=== PATIENT | female | born 1945 | race Caucasian/White ===

== ENCOUNTER → 2017-03-15 | Day surgery (SDC) | payer MEDICARE ==
[~2017-03-15] VITALS: Ht 157.5 cm; Wt 54.8 kg
[~2017-03-15] MED LIST: AMBI10TA PO; CHLORHEXIDINE GLUCONATE 2 % 1 PACK (2 CLOTHS) TOPICAL PRN; CYCL-36 PO; ESMOLOL HCL 100 MG/10 ML VIAL IV ONE; FEXO180 PO; GABA300 PO; GLYCOPYRROLATE 1 MG/5 ML SYRINGE IV PUSH ONE; IMIT50TA PO; INSULIN HUMAN REGULAR 1,000 UNITS/10 ML VIAL SQ PRN; LACTATED RINGER'S 1000 ML IV PRN; LANO0.2510 PO; LIDOCAINE HCL 1% PF 5 ML SYRINGE OTHER ONE; LIPI40TA PO; LORA-474 PO; METH2.5 PO; METOPROLOL TARTRATE 25 MG TAB PO PRN; MORP30TA3 PO; NADO1TAB17 PO; PERC10TA26 PO; POVIDONE IODINE 5% (ANTISEPSIS KIT) 4 APPLICATIONS EACH NARE PRN; PREM0.622 PO; PRIN10TA PO; PROPOFOL 200 MG/20 ML AMP IV ONE; PROT40TA PO; SODIUM CHLORID 0.9% 500 ML IV PRN; TRAZ50TA78 PO; hydrALAZINE HCL 20 MG/ML VIAL IV ONE
--- NOTE | 2017-03-15 18:05 | GIPROC ---
[facility] [address] [facility]. [facility], [address] EGD PROCEDURE REPORT EXAM DATE: 03/15/2017 PATIENT NAME: Katherine Nelson MR #: [id number] BIRTHDATE: 1945 ATTENDING: Blake Bowen MD ORDER #: [id number] [employer] SUPERVISOR: Oh Romero and Sosa Gray STATUS: outpatient INDICATIONS: The patient is a 71 yr old female here for an EGD due to dysphagia PROCEDURE PERFORMED: EGD w/ biopsy MEDICATIONS: None and Per Anesthesia. TOPICAL ANESTHETIC: CONSENT: The patient understands the risks and benefits of the procedure and understands that these risks include, but are not limited to: sedation, allergic reaction, infection, perforation and/or bleeding. Alternative means of evaluation and treatment include, among others: physical exam, x-rays, and/or surgical intervention. The patient elects to proceed with this endoscopic procedure. medical equipment was checked for proper function. Hand hygiene and appropriate measures for infection prevention was taken. After the risks, benefits and alternatives of the procedure were thoroughly explained, Informed consent was verified, confirmed and timeout was successfully executed by the treatment team. The patient was anesthetized with topical anesthesia and the EC-3490Li (Pedi C) endoscope was introduced through the mouth and advanced to the second portion of the duodenum. Retroflexed views revealed no abnormalities The gastroscope was then slowly withdrawn and removed. ESOPHAGUS: The mucosa of the esophagus appeared normal. Multiple biopsies were performed. The endoscopy was otherwise normal. ADVERSE EVENTS: There were no complications. IMPRESSIONS: 1. The esophagus appeared normal; multiple biopsies were performed 2. Normal endoscopy otherwise 3. Retroflexed views revealed no abnormalities RECOMMENDATIONS: 1. Await biopsy results. Biopsy results will not be ready for 7-10 days. If you don't hear from us in two weeks, call our office for biopsy results. 2. Follow-up: GI clinic 4 week(s) PATIENT CONDITION: stable DISPOSITION: Home REPEAT EXAM: Blake Bowen MD eSigned: Blake Bowen MD 03/15/2017 6:04 PM cc:
--- NOTE | 2017-03-15 18:08 | GIPROC ---
[facility] [address] [facility]. [facility], [address] COLONOSCOPY PROCEDURE REPORT EXAM DATE: 03/15/2017 PATIENT NAME: Katherine Nelson MR #: [id number] BIRTHDATE: 1945 ENDOSCOPIST: Blake Bowen MD ORDER #: [id number] TRAINING PROFESSIONAL: Oh Romero and Sosa Gray STATUS: outpatient INDICATIONS: The patient is a 71 yr old female here for a colonoscopy due to constipation PROCEDURE PERFORMED: Colonoscopy with polypectomy Colonoscopy with ablation MEDICATIONS: None and Per Anesthesia. PREP QUALITY: fair ESTIMATED BLOOD LOSS: None CONSENT: The patient understands the risks and benefits of the procedure and understands that these risks include, but are not limited to: sedation, allergic reaction, infection, perforation and/or bleeding. Alternative means of evaluation and treatment include, among others: physical exam, x-rays, and/or surgical intervention. The patient elects to proceed with this endoscopic procedure. medical equipment was checked for proper function. Hand hygiene and appropriate measures for infection prevention was taken. After the risks, benefits and alternatives of the procedure were thoroughly explained, Informed consent was verified, confirmed and timeout was successfully executed by the treatment team. A digital exam revealed no abnormalities of the rectum The Pentax EC-3490Li endoscope was introduced through the anus and advanced to the cecum, which was identified by both the appendix and ileocecal valve. The instrument was then slowly withdrawn as the colon was fully examined. 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 Cautery was applied to the site. Six medium sized smooth sessile polyps were found in the ascending colon, transverse colon, and sigmoid colon. A polypectomy was performed with a cold snare and using snare cautery. The resection was complete and the polyp tissue was completely retrieved. Mild diverticulosis was noted in the sigmoid colon. The colon mucosa was otherwise normal. Retroflexed views revealed no abnormalities The scope was then completely withdrawn from the patient and the procedure terminated. PROCEDURE WITHDRAWAL TIME:13.7minutes ADVERSE EVENTS: There were no complications. IMPRESSIONS: 1. 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 Six medium sized sessile polyps were found in the ascending colon, transverse colon, and sigmoid colon; polypectomy was performed with a cold snare and using snare cautery 3. Mild diverticulosis was noted in the sigmoid colon 4. The colon mucosa was otherwise normal 5. Retroflexed views revealed no abnormalities 6. Revealed no abnormalities of the rectum RECOMMENDATIONS: 1. Await biopsy results. Biopsy results will not be ready for 7-10 days. If you don't hear from us in two weeks, call our office for results. 2. Yearly hemoccult 3. High fiber diet 4. Follow-up: GI Clinic 4 week(s) RECALL: Return 1 year Colonoscopy Blake Bowen MD eSigned: Blake Bowen MD 03/15/2017 6:08 PM cc: PATIENT NAME: Katherine Nelson MR#: [id number]
[2017-03-15 18:50] VITALS: BP 179/81; PULSE 68; RESP 16; TEMP 98.7; O2SAT 100
--- NOTE | 2017-03-17 10:26 | EKG ---
Date Performed: 03/15/2017 Time Performed: 14:54:59 PTAGE: 71 years EKG: SINUS BRADYCARDIA BORDERLINE ECG PREVIOUS TRACING : 03/29/2008 13.54 Compared to the previous tracing rate slower DOCTOR: Abida Hussein Interpretating Date/Time 03/17/2017 10:24:41
== END | disposition home or self-care (01) ==
LOC: HSDC 13:36
PROVIDERS: ATTEND Internal Medicine Gastroenterology
DX: R13.10 Dysphagia, unspecified (principal); K21.9 Gastro-esophageal reflux disease without esophagitis; R11.0 Nausea; D12.0 Benign neoplasm of cecum; D12.3 Benign neoplasm of transverse colon; K63.5 Polyp of colon; K59.00 Constipation, unspecified; R60.0 Localized edema; R53.83 Other fatigue; R07.89 Other chest pain; J44.9 Chronic obstructive pulmonary disease, unspecified; I10 Essential (primary) hypertension; J30.9 Allergic rhinitis, unspecified; E78.5 Hyperlipidemia, unspecified; M79.1 Myalgia; R73.03 Prediabetes; Z01.810 Encounter for preprocedural cardiovascular examination
CPT/HCPCS: 00740; 43239; 45385; 88305; 93005; J0360; 88312